=== PATIENT | female | born 1955 | race Caucasian/White ===

== ENCOUNTER 2018-02-25 11:14 | Emergency (ER) | payer OTHER ==
[~2018-02-25] VITALS: Ht 157.5 cm; Wt 70.8 kg
== END 2018-02-25 19:42 | disposition home or self-care (01) ==
LOC: ER 11:14
DX: K59.09 Other constipation (principal)

== ENCOUNTER 2018-04-16 07:43 | Outpatient (CLI) | payer OTHER | END 2018-04-16 07:46 | disposition home or self-care (01) | LOC: RX STUDY 07:43 | DX: K56.699 Other intestinal obstruction unspecified as to partial versus complete obstruction (principal) ==